=== PATIENT | female | born 1995 | race Caucasian/White ===

== ENCOUNTER 2018-10-27 06:10 | Inpatient (IN) ==
[2018-10-27] MEDS ORDERED: MEPERIDINE 50 MG/1 ML VIAL IV PRN (06:33)
[2018-10-27] MEDS ORDERED: BUTORPHANOL 2 MG/ML VIAL IV PRN (06:33)
[2018-10-27 07:00] LABS: Basophils % 0.2 % (0.0-0.8); Eosinophils % 0.5 % (0.00-10.9); Hematocrit 34.6 VOL% (35.7-47.0); Hemoglobin 10.8 GM/DL (12.0-16.0); Immature Granulocytes % 2.1 %; Immature Granulocytes Absolute 0.18 #; Lymphocytes # 1.7 10*3/uL (1.4-4.0); Lymphocytes % 19.7 % (21.3-54.2); Mean Corpuscular HGB Conc 31.2 GM/DL (32-36); Mean Corpuscular Hemoglobin 28 PG (27-34); Mean Corpuscular Volume 88.7 FL (87-102); Mean Platelet Volume 12.9 FL (9.6-12.0); Monocytes # 0.8 10*3/uL (0.11-0.8); Monocytes % 8.8 % (1.7-12.7); NRBC # 0.03 10*3/uL; Neutrophils # 5.9 10*3/uL (1.4-7.4); Neutrophils % 68.7 % (38.7-73.9); Platelet Count 235 T/CUMM (130-400); Red Cell Distribution Width 14.8 % (9.3-17.3); White Blood Count 8.6 T/CUMM (4-12)
[2018-10-27] MEDS: LACTATED RINGERS 1,000 ML IV SCH ×3 (07:14→20:00)
[2018-10-27 07:32] LABS: Alanine Aminotransferase 19 U/L (13-56); Albumin 2.7 G/DL (3.4-5.0); Alkaline Phosphatase 394 U/L (45-117); Aspartate Amino Transferase 18 U/L (0-37); Bilirubin,Total < 0.39 MG/DL (0.2-1.0); Blood Urea Nitrogen 15 MG/DL (7-18); Calcium 9.1 MG/DL (8.5-10.1); Glucose 78 MG/DL (74-106); Osmolality,Calculated 272.8 MOS/KG (273-304); Sodium 137 MMOL/L (136-145); Total Protein 7.7 G/DL (6.4-8.3)
[2018-10-27 07:51] LABS: INR 0.8; PT Patient Result 9.1 SECS; Partial Thromboplastin Time 26.8 SECS (0-40)
[2018-10-27] MEDS: OXYTOCIN/LR 20 UNIT/1,000 ML BAG IV SCH (07:53)
[2018-10-27] MEDS ORDERED: SIMETHICONE CHEW 125 MG TABLET PO PRN (08:42)
[2018-10-27] MEDS ORDERED: PROMETHAZINE 25 MG/1 ML VIAL IM PRN (10:51)
[2018-10-27] MEDS ORDERED: NALOXONE 0.4 MG/ML VIAL IV PRN (10:51)
[2018-10-27] MEDS ORDERED: FAMOTIDINE 20 MG/2 ML VIAL IV ONE (10:51)
[2018-10-27] MEDS ORDERED: diphenhydrAMINE 50 MG/1 ML VIAL IV PRN (10:51)
[2018-10-27] MEDS ORDERED: CITRIC ACID/SODIUM CITRATE 30 ML UDCUP PO ONE (10:51)
[2018-10-27] MEDS ORDERED: hydrOXYzine HCL 25 MG/1 ML VIAL IM PRN (10:51)
[2018-10-27] MEDS ORDERED: ePHEDrine 50 MG/ML AMP IV PRN (10:51)
[2018-10-27] MEDS: fentaNYL 2 MCG/ROPIV 0.2% EPID 100 ML EPIDURAL SCH ×2 (12:01→17:17)
[2018-10-27 14:26] LABS: Apearance,Urine CLOUDY (Clear); Bilirubin,Urine Negative (Negative); Blood, Urine Large mg/dL (Negative); Glucose,Urine (UA) Negative (Negative); Ketones,Urine 20 mg/dL (Negative); Nitrite,Urine Negative (Negative); Protein,Urine 100 MG/DL; Urine Color Yellow (Yellow); Urine Specific Gravity 1.019 (1.001-1.035); Urine Urobilinogen < 2.0 EU/DL (0.2-1.0)
[2018-10-27 14:34] LABS: RBC,Urine 40 /HPF (0-4); Squamous Epithelial Cell,Urine 1+ /HPF (0-10); WBC,Urine 7 /HPF (0-6)
[2018-10-27 14:35] LABS: Bacteria,Urine Few /HPF (Few)
[2018-10-27] MEDS: ONDANSETRON 4 MG/2 ML VIAL IV PRN (15:31)
[2018-10-27] MEDS: ACETAMINOPHEN 325 MG TABLET PO PRN ×2 (17:12→21:20)
[2018-10-27] MEDS ORDERED: METHYLERGONOVINE 0.2 MG/1 ML AMP ONE (22:48)
[2018-10-27] MEDS ORDERED: miSOPROStol 200 MCG TABLET ONE (22:49)
[2018-10-27] MEDS ORDERED: LIDOCAINE 1% 50 ML VIAL ONE (23:25)
[2018-10-27 23:50] LABS: Cord Arterial Blood HCO3 10.2 MMOL/L
[2018-10-27 23:52] LABS: Cord Venous Blood HCO3 14.4 MMOL/L; Cord Venous Blood PCO2 45.2 MMHG; Cord Venous Blood PO2 20.4 MMHG
[2018-10-28] MEDS ORDERED: RHO(D) IMMUNE GLOBULIN 300 MCG SYRINGE IM ONE (00:01)
[2018-10-28] MEDS ORDERED: WITCH HAZEL PADS 100/JAR TOP PRN (00:01)
[2018-10-28] MEDS ORDERED: DIPH/TET/ACEL PERT BOOSTER VACCINE 0.5 ML VIAL IM ONE (00:01)
[2018-10-28] MEDS ORDERED: HYDROCORTISONE 2.5% RECTAL CREAM 30 GM TUBE TOP PRN (00:01)
[2018-10-28] MEDS ORDERED: OXYTOCIN/LR 20 UNIT/1,000 ML BAG IV ONE (00:01)
[2018-10-28] MEDS ORDERED: LANOLIN 50% CREAM 0.3 OZ TUBE TOP PRN (00:01)
[2018-10-28] MEDS ORDERED: BENZOCAINE 20%/MENTHOL 0.5% SPRAY 56 GM CAN TOP PRN (00:01)
[2018-10-28] MEDS ORDERED: MEASLES/MUMPS/RUBELLA VACCINE 0.5 ML VIAL SUBCUT ONE (00:01)
[2018-10-28] MEDS ORDERED: BISACODYL 10 MG SUPP RECTAL PRN (00:01)
[2018-10-28] MEDS ORDERED: ACETAMINOPHEN 325 MG TABLET PO PRN (00:01)
[2018-10-28] MEDS: OXYTOCIN/LR 20 UNIT/1,000 ML BAG IV SCH (00:03)
[2018-10-28] MEDS ORDERED: MEPERIDINE 25 MG/1 ML VIAL IV ONE (00:16)
[2018-10-28] MEDS: ONDANSETRON 4 MG/2 ML VIAL IV PRN (00:27)
[2018-10-28] MEDS: IBUPROFEN 800 MG TABLET PO PRN ×3 (01:18→18:46)
[2018-10-28] MEDS ORDERED: MEPERIDINE 25 MG/1 ML VIAL IV PRN (01:24)
[2018-10-28 06:24] LABS: Basophils % 0.1 % (0.0-0.8); Hematocrit 25.5 VOL% (35.7-47.0); Immature Granulocytes % 0.8 %; Immature Granulocytes Absolute 0.18 #; Lymphocytes # 1.4 10*3/uL (1.4-4.0); Lymphocytes % 6.1 % (21.3-54.2); Mean Corpuscular HGB Conc 32.2 GM/DL (32-36); Mean Corpuscular Hemoglobin 28 PG (27-34); Mean Corpuscular Volume 86.7 FL (87-102); Mean Platelet Volume 13.2 FL (9.6-12.0); Monocytes # 1.1 10*3/uL (0.11-0.8); Monocytes % 4.9 % (1.7-12.7); NRBC # 0.02 10*3/uL; Neutrophils # 20.1 10*3/uL (1.4-7.4); Neutrophils % 88.1 % (38.7-73.9); Red Cell Distribution Width 14.9 % (9.3-17.3)
[2018-10-28 06:37] LABS: Hemoglobin 8.2 GM/DL (12.0-16.0); Platelet Count 178 T/CUMM (130-400); Red Blood Count 2.94 MC/CUMM (3.8-5.5); White Blood Count 22.8 T/CUMM (4-12)
[2018-10-28 06:44] LABS: Band Neutrophils 10 % (0-10); Lymphocytes 5 % (20-55); Platelet Estimate Adequate; Segmented Neutrophils 81 % (50-85); Total Cells Counted 100
[2018-10-28 06:45] LABS: Hypochromasia 1+; Ovalocytes Slight
[2018-10-28] MEDS: DOCUSATE SODIUM 100 MG CAPSULE PO SCH ×2 (07:59→21:56)
[2018-10-29 05:20] VITALS: BP 110/62
[2018-10-29] MEDS: DOCUSATE SODIUM 100 MG CAPSULE PO SCH (08:50)
[2018-10-29] MEDS ORDERED: FERROUS SULFATE 325 MG TABLET PO SCH (09:00)
[2018-10-29] MEDS: IBUPROFEN 800 MG TABLET PO PRN (12:07)
== END 2018-10-29 15:40 | disposition home or self-care (01) | DRG 807 ==
LOC: N.LAB 06:10 → N.LD 06:14 → N.OB 10-28 02:40
PROVIDERS: ADMIT Obstetrics & Gynecology; ATTEND Obstetrics & Gynecology